=== PATIENT | female | born 1975 | race Caucasian/White ===

== ENCOUNTER 2017-05-08 15:27 | Inpatient (IN) | payer OTHER ==
[~2017-05-08] VITALS: Ht 160 cm; Wt 81.2 kg
[2017-06-18] MEDS ORDERED: FISH1CAP27 PO (10:04)
[2017-06-18] MEDS ORDERED: FERR-89 PO (10:04)
[2017-06-18] MEDS ORDERED: PREN-134 PO (10:04)
[2017-06-18] MEDS ORDERED: CITRIC ACID/SODIUM CITRATE 30 ML SOLUTION UDCUP PO ONE (10:15)
[2017-06-18] MEDS ORDERED: METOCLOPRAMIDE HCL 5 MG/ML 2 ML VIAL IVP ONE (10:15)
[2017-06-18] MEDS ORDERED: METHYLERGONOVINE MALEATE 0.2 MG/ML VIAL IM PRN (10:15)
[2017-06-18] MEDS: RINGERS SOLUTION,LACTATED 1,000 ML IV SCH ×2 (10:52→11:14)
[2017-06-18 10:58] LABS: BASOPHILS % (AUTO) 0.3 % (0.0-2.0); EOSINOPHILS % (AUTO) 0.3 % (1.0-6.0); HEMATOCRIT 42.8 % (36-46); HEMOGLOBIN 14.5 g/dL (12.0-16.0); LYMPHOCYTES # (AUTO) 1.8 K/uL (1.0-4.8); LYMPHOCYTES % (AUTO) 21.5 % (22.0-44.0); MEAN CORPUSCULAR HGB CONC 33.9 G/dL (31.0-37.0); MEAN CORPUSCULAR VOLUME 86 fL (80-100); MONOCYTES # (AUTO) 0.5 K/uL (0.1-1.0); MONOCYTES % (AUTO) 6.1 % (2.0-9.0); NEUTROPHILS % (AUTO) 71.8 % (40.0-70.0); WHITE BLOOD COUNT (AUTO) 8.4 K/uL (4.5-11.0)
[2017-06-18] MEDS ORDERED: FentaNYL CITRATE-PF 100 MCG/2 ML VIAL ONE (11:09)
[2017-06-18] MEDS ORDERED: MIDAZOLAM HCL 2 MG/2 ML VIAL ONE (11:09)
[2017-06-18] MEDS ORDERED: MORPHINE SULFATE/PF 0.5 MG/ML 10 ML AMP ONE (11:09)
[2017-06-18 11:29] VITALS: BP 111/69
[2017-06-18] MEDS ORDERED: GUM MASTIC/STORAX/MSAL/ALCOHOL LIQUID 0.67 ML VIAL TP ONE (12:36)
[2017-06-18] MEDS ORDERED: MORPHINE SULFATE 2 MG/ML SYRINGE IVP PRN (13:30)
[2017-06-18] MEDS ORDERED: DiphenhydrAMINE HCL 50 MG/ML VIAL IVP PRN ×2 (13:30)
[2017-06-18] MEDS ORDERED: FentaNYL CITRATE-PF 100 MCG/2 ML VIAL IVP PRN ×2 (13:30)
[2017-06-18] MEDS ORDERED: MORPHINE SULFATE 4 MG/ML SYRINGE IVP PRN (13:30)
[2017-06-18] MEDS ORDERED: ONDANSETRON HCL 4 MG/2 ML VIAL IVP PRN ×2 (13:30)
[2017-06-18] MEDS ORDERED: OXYGEN THERAPY IH SCH ×2 (13:30)
[2017-06-18] MEDS ORDERED: OXYTOCIN 20 UNITS/LACT RINGERS 1,000 ML IV SCH (13:57)
[2017-06-18] MEDS ORDERED: DEXTROSE 5%-0.45% SODIUM CHL 1,000 ML IV SCH (13:57)
[2017-06-18] MEDS ORDERED: GLYCERIN/WITCH HAZEL LEAF 40 PADS JAR TP PRN (14:00)
[2017-06-18] MEDS ORDERED: IBUPROFEN 600 MG TABLET PO PRN (14:00)
[2017-06-18] MEDS ORDERED: DiphenhydrAMINE HCL 50 MG/ML VIAL ONE (15:03)
[2017-06-18] MEDS: NALBUPHINE HCL 10 MG/ML VIAL IVP SCH (18:06)
[2017-06-18] MEDS: KETOROLAC TROMETHAMINE 30 MG/ML VIAL IVP SCH (20:33)
[2017-06-19] MEDS: NALBUPHINE HCL 10 MG/ML VIAL IVP SCH ×2 (00:18→06:30)
[2017-06-19] MEDS: OxyCODONE HCL/ACETAMINOPHEN 5-325 MG TABLET PO PRN ×2 (01:06→17:01)
[2017-06-19] MEDS ORDERED: DEXAMETHASONE SOD PHOS 4 MG/ML VIAL IVP ONE (01:15)
[2017-06-19] MEDS ORDERED: OXYTOCIN 10 UNITS/ML VIAL IM ONE (01:15)
[2017-06-19] MEDS ORDERED: ONDANSETRON HCL 4 MG/2 ML VIAL IVP ONE (01:15)
[2017-06-19] MEDS ORDERED: KETOROLAC TROMETHAMINE 60 MG/2 ML VIAL IM ONE (01:15)
[2017-06-19] MEDS ORDERED: EPHEDrine SULFATE 50 MG/ML VIAL IM ONE (01:15)
[2017-06-19] MEDS: KETOROLAC TROMETHAMINE 30 MG/ML VIAL IVP SCH ×2 (04:46→10:20)
[2017-06-19 05:27] LABS: BASOPHILS # (AUTO) 0.03 K/uL (0.00-0.20); BASOPHILS % (AUTO) 0.2 % (0.0-2.0); EOSINOPHILS % (AUTO) 0.04 % (1.0-6.0); HEMOGLOBIN 12.8 g/dL (12.0-16.0); LYMPHOCYTES # (AUTO) 1.9 K/uL (1.0-4.8); LYMPHOCYTES % (AUTO) 14.8 % (22.0-44.0); MEAN CORPUSCULAR HEMOGLOBIN 28.9 pg (26.0-34.0); MEAN CORPUSCULAR HGB CONC 33.7 G/dL (31.0-37.0); MEAN CORPUSCULAR VOLUME 86 fL (80-100); MONOCYTES # (AUTO) 0.9 K/uL (0.1-1.0); RED BLOOD CELL COUNT(AUTO) 4.44 MIL/uL (4.00-5.20); WHITE BLOOD COUNT (AUTO) 12.8 K/uL (4.5-11.0)
[2017-06-19] MEDS: IBUPROFEN 800 MG TABLET PO SCH ×2 (12:00→18:18)
[2017-06-19] MEDS: MAGNESIUM HYDROXIDE SUSPENSION 30 ML UDCUP PO SCH (21:15)
[2017-06-20] MEDS: IBUPROFEN 800 MG TABLET PO SCH ×4 (00:04→17:39)
[2017-06-20] MEDS: OxyCODONE HCL/ACETAMINOPHEN 5-325 MG TABLET PO PRN ×3 (03:13→20:24)
[2017-06-20] MEDS: MAGNESIUM HYDROXIDE SUSPENSION 30 ML UDCUP PO SCH ×3 (09:00→21:00)
[2017-06-20] MEDS ORDERED: LANOLIN 7 GM OINTMENT TP PRN (20:45)
[2017-06-21] MEDS: IBUPROFEN 800 MG TABLET PO SCH ×3 (00:07→11:19)
[2017-06-21] MEDS: OxyCODONE HCL/ACETAMINOPHEN 5-325 MG TABLET PO PRN ×2 (06:47→09:39)
[2017-06-21] MEDS: MAGNESIUM HYDROXIDE SUSPENSION 30 ML UDCUP PO SCH (08:50)
[2017-06-21] MEDS ORDERED: PERCT PO (11:38)
[2017-06-21] MEDS ORDERED: DSS100 PO (11:39)
[2017-06-21] MEDS ORDERED: IBUP-2070 PO (11:39)
== END 2017-06-21 13:45 | disposition home or self-care (01) | DRG 766 ==
LOC: 4S 06-18 09:54 → OBSVTOIN 06-18 09:54
PROVIDERS: ADMIT Obstetrics & Gynecology; ATTEND Obstetrics & Gynecology
PROC: 10D00Z1 Extraction of Products of Conception, Low, Open Approach (ICD-10-PCS; principal; 2017-06-18)
DX: O32.1XX0 Maternal care for breech presentation, not applicable or unspecified (principal); Z37.0 Single live birth; Z3A.39 39 weeks gestation of pregnancy
CPT/HCPCS: 86850; 86900; 86901; 87081; J0690; J1100; J1200; J1885; J2250; J2274; J2300; J2405; J2590; J2765; J3010; J3490; J7120

== ENCOUNTER 2019-05-10 09:09 | Inpatient (IN) | payer OTHER ==
[~2019-05-10 09:09] MED LIST: DSS100 PO; IBUP-2070 PO; PERCT PO; PREN-134 PO
[2019-05-10] MEDS ORDERED: CITRIC ACID/SODIUM CITRATE 30 ML SOLUTION UDCUP PO PRN (11:15)
[2019-05-10] MEDS ORDERED: RINGERS SOLUTION,LACTATED 1,000 ML IV PRN (11:15)
[2019-05-10] MEDS ORDERED: METOCLOPRAMIDE HCL 5 MG/ML 2 ML VIAL IVP PRN (11:15)
[2019-05-10] MEDS ORDERED: RINGERS SOLUTION,LACTATED 1,000 ML IV SCH (11:15)
[2019-05-10] MEDS ORDERED: SODIUM CHLORIDE 0.9% 1,000 ML IV ONE (11:23)
[2019-05-10] MEDS ORDERED: BUPIVACAINE HCL/DEX-WATER/PF 0.75% 2 ML AMP ONE (11:23)
[2019-05-10] MEDS ORDERED: RINGERS SOLUTION,LACTATED 1,000 ML IV ONE ×2 (11:23→15:27)
[2019-05-10 11:59] LABS: BASOPHILS % (AUTO) 0.5 % (0.0-2.0); EOSINOPHILS % (AUTO) 0.6 % (1.0-6.0); HEMATOCRIT 45.8 % (36-46); HEMOGLOBIN 14.9 g/dL (12.0-16.0); LYMPHOCYTES % (AUTO) 22.3 % (22.0-44.0); MEAN CORPUSCULAR HEMOGLOBIN 28.1 pg (26.0-34.0); MEAN CORPUSCULAR HGB CONC 32.6 G/dL (31.0-37.0); MEAN CORPUSCULAR VOLUME 86 fL (80-100); MONOCYTES # (AUTO) 0.5 K/uL (0.1-1.0); NEUTROPHILS # (AUTO) 6.4 K/uL (1.8-7.7); NEUTROPHILS % (AUTO) 70.6 % (40.0-70.0); PLATELET COUNT (AUTO)-OB 160 K/uL (150-450); RED BLOOD CELL COUNT(AUTO) 5.31 MIL/uL (4.00-5.20); RED CELL DISTRIBUTION WIDTH 14.6 % (11.5-14.5)
[2019-05-10] MEDS ORDERED: MORPHINE SULFATE/PF 0.5 MG/ML 10 ML AMP IVP ONE (12:00)
[2019-05-10] MEDS ORDERED: ONDANSETRON HCL 4 MG/2 ML VIAL IVP ONE (12:00)
[2019-05-10] MEDS ORDERED: FentaNYL CITRATE-PF 100 MCG/2 ML VIAL IVP ONE (12:00)
[2019-05-10] MEDS ORDERED: OXYTOCIN 10 UNITS/ML VIAL IM ONE (12:00)
[2019-05-10] MEDS ORDERED: EPHEDrine SULFATE 50 MG/ML VIAL IM ONE (12:00)
[2019-05-10] MEDS ORDERED: 0.9% SODIUM CHLORIDE 10 ML VIAL IVP ONE (12:00)
[2019-05-10] MEDS ORDERED: KETOROLAC TROMETHAMINE 60 MG/2 ML VIAL IM ONE (12:00)
[2019-05-10] MEDS ORDERED: FentaNYL CITRATE-PF 100 MCG/2 ML VIAL IVP PRN (12:15)
[2019-05-10] MEDS ORDERED: MEPERIDINE-PF 25 MG/ML VIAL IVP PRN (12:15)
[2019-05-10] MEDS ORDERED: HYDROmorphone 2 MG/ML SYRINGE IVP PRN (12:15)
[2019-05-10 13:07] VITALS: BP 116/56
[2019-05-10] MEDS ORDERED: LIDOCAINE/PF 2% 5 ML VIAL ONE (15:37)
[2019-05-10] MEDS ORDERED: TRIAMCINOLONE ACETONIDE 40 MG/ML VIAL IARTIC ONE (16:00)
[2019-05-10] MEDS ORDERED: NALOXONE HCL 0.4 MG/ML VIAL IVP PRN (16:15)
[2019-05-10] MEDS ORDERED: ONDANSETRON HCL 4 MG/2 ML VIAL IVP PRN (16:15)
[2019-05-10] MEDS ORDERED: MORPHINE SULFATE 10 MG/ML SYRINGE IVP PRN (16:15)
[2019-05-10] MEDS ORDERED: NALBUPHINE HCL 10 MG/ML VIAL IVP PRN ×2 (16:15)
[2019-05-10] MEDS ORDERED: DiphenhydrAMINE HCL 50 MG/ML VIAL IVP PRN (16:15)
[2019-05-10] MEDS ORDERED: TRIAMCINOLONE ACETONIDE 40 MG/ML VIAL ONE (16:22)
[2019-05-10] MEDS ORDERED: ACETAMINOPHEN 1000 MG/ISO-OSM 100 ML IV ONE (17:29)
[2019-05-10] MEDS: ACETAMINOPHEN 1000 MG/ISO-OSM 100 ML IV SCH (17:36)
[2019-05-10] MEDS ORDERED: PNEUMOCOCCAL VACCINE POLYVALENT 0.5 ML VIAL [PPSV23] IM ONE (19:30)
[2019-05-10] MEDS ORDERED: OXYGEN THERAPY IH SCH ×3 (20:00)
[2019-05-10] MEDS: DEXTROSE 5%-0.45% SODIUM CHL 1,000 ML IV SCH (21:23)
[2019-05-10] MEDS: FentaNYL CITRATE-PF 100 MCG/2 ML VIAL IVP PRN (21:42)
[2019-05-10] MEDS: KETOROLAC TROMETHAMINE 30 MG/ML VIAL IVP SCH (22:41)
[2019-05-11] MEDS: DEXTROSE 5%-0.45% SODIUM CHL 1,000 ML IV SCH ×3 (01:09→09:46)
[2019-05-11] MEDS: ACETAMINOPHEN 1000 MG/ISO-OSM 100 ML IV SCH (01:09)
[2019-05-11] MEDS: KETOROLAC TROMETHAMINE 30 MG/ML VIAL IVP SCH (04:28)
[2019-05-11] MEDS ORDERED: OXYGEN THERAPY IH SCH (08:00)
[2019-05-11] MEDS: FentaNYL CITRATE-PF 100 MCG/2 ML VIAL IVP PRN (08:41)
[2019-05-11] MEDS: MAGNESIUM HYDROXIDE SUSPENSION 30 ML UDCUP PO SCH ×2 (09:56→21:26)
[2019-05-11] MEDS: IBUPROFEN 800 MG TABLET PO SCH ×2 (09:59→17:35)
[2019-05-11] MEDS: ACETAMINOPHEN/CODEINE 300-30 MG TABLET PO PRN ×2 (16:23→22:01)
[2019-05-11] MEDS: LANOLIN 7 GM OINTMENT TP PRN (18:41)
[2019-05-12] MEDS: IBUPROFEN 800 MG TABLET PO SCH ×4 (00:02→17:50)
[2019-05-12] MEDS: ACETAMINOPHEN/CODEINE 300-30 MG TABLET PO PRN ×2 (08:40→20:09)
[2019-05-12] MEDS: LANOLIN 7 GM OINTMENT TP PRN (17:50)
[2019-05-12] MEDS: MAGNESIUM HYDROXIDE SUSPENSION 30 ML UDCUP PO SCH (20:09)
[2019-05-12 23:19] LABS: APPEARANCE,URINE CLEAR (CLEAR); BILIRUBIN,URINE NEGATIVE (NEGATIVE); GLUCOSE, URINE (UA) NEGATIVE (NEGATIVE); KETONES,URINE NEGATIVE (NEGATIVE); LEUKOCYTE ESTERASE ,URINE NEGATIVE (NEGATIVE); NITRATE,URINE NEGATIVE (NEGATIVE); OCCULT BLOOD,URINE NEGATIVE (NEGATIVE); PROTEIN,URINE NEGATIVE (NEGATIVE); UROBILINOGEN,URINE 0.2 mg/dL (<=1.0)
[2019-05-12 23:59] LABS: AMORPHOUS SEDIMENT,UR Few /LPF (None Seen); BACTERIA,URINE None Seen /HPF (None Seen); RBC,URINE None Seen /HPF (0-2); SQUAMOUS EPITHELIAL CELL,UR Rare /LPF (None Seen); WBC,URINE None Seen /HPF (0-5)
[2019-05-13] MEDS: IBUPROFEN 800 MG TABLET PO SCH ×3 (00:15→11:55)
[2019-05-13] MEDS: ACETAMINOPHEN/CODEINE 300-30 MG TABLET PO PRN ×2 (03:50→10:39)
[2019-05-13] MEDS: MAGNESIUM HYDROXIDE SUSPENSION 30 ML UDCUP PO SCH (10:39)
[2019-05-13] MEDS ORDERED: IBUP-2071 PO (12:08)
== END 2019-05-13 14:45 | disposition home or self-care (01) | DRG 785 ==
LOC: 4S 09:09 → OBSVTOIN 09:09 → UNDOADMOB 09:09 → UNDODISOB 05-13 14:45
PROVIDERS: ADMIT Obstetrics & Gynecology; ATTEND Obstetrics & Gynecology
PROC: 10D00Z1 Extraction of Products of Conception, Low, Open Approach (ICD-10-PCS; principal; 2019-05-10)
PROC: 0UL70ZZ Occlusion of Bilateral Fallopian Tubes, Open Approach (ICD-10-PCS; 2019-05-10)
DX: O34.211 Maternal care for low transverse scar from previous cesarean delivery (principal); Z3A.39 39 weeks gestation of pregnancy; Z37.0 Single live birth; Z30.2 Encounter for sterilization; O09.523 Supervision of elderly multigravida, third trimester
CPT/HCPCS: 86850; 86900; 86901; 87081; 88302; J0131; J0690; J1885; J2274; J2405; J2590; J2765; J3010; J3301; J3490; J7030; J7120